=== PATIENT | female | born 1950 | race Caucasian/White ===

== ENCOUNTER 2017-08-14 13:21 | Emergency (ER) | payer OTHER ==
[~2017-08-14] VITALS: Ht 157.5 cm; Wt 77.2 kg
[~2017-08-14 13:21] MED LIST: ADVIN25050 INH; ALBUAER19 INH; BNC20 PO; CLX20 PO; DTRSR4 PO; GABA1CAP5 PO; HYDC25 PO; HYDR-600 PO; SNG10 PO; TIZA2CAP PO; TIZA4CAP PO; TRAM-10 PO; ZNTT/150 PO; [UNRECOGNIZED DRUG - OTHER] PO
[2017-08-14 13:23] VITALS: TEMP 36.6; Ht 157.5 cm; Wt 77.2 kg
[2017-08-14] MEDS ORDERED: OXYCODONE/ACETAMINOPHEN 10/325MG TAB PO STA (13:58)
[2017-08-14] MEDS ORDERED: CLC100X PO (14:04)
[2017-08-14] MEDS ORDERED: TOLT4CAP PO (14:04)
[2017-08-14] MEDS ORDERED: VNTHFA/IN INH (14:04)
[2017-08-14] MEDS ORDERED: CARV6.252 PO (14:04)
[2017-08-14] MEDS ORDERED: ZNTT/150 PO (14:04)
[2017-08-14] MEDS ORDERED: MONT1TAB3 PO (14:04)
[2017-08-14] MEDS ORDERED: TIZA4CAP PO (14:04)
[2017-08-14] MEDS ORDERED: NXM/40 PO (14:04)
[2017-08-14] MEDS ORDERED: HYDR-4079 PO (14:04)
[2017-08-14] MEDS ORDERED: SIMV40TA2 PO (14:04)
[2017-08-14] MEDS ORDERED: GABA-112 PO (14:04)
[2017-08-14] MEDS ORDERED: HYDR25TA5 PO (14:04)
[2017-08-14] MEDS ORDERED: CETI10TA84 PO (14:04)
[2017-08-14] MEDS ORDERED: ADVIN50/60 INH (14:04)
[2017-08-14] MEDS ORDERED: DOCU-94 PO (14:04)
[2017-08-14] MEDS ORDERED: BNC40 PO (14:04)
[2017-08-14] MEDS ORDERED: CITA20TA9 PO (14:04)
--- NOTE | 2017-08-14 14:12 | EMERGENCY ROOM VISIT NOTE ---
History First contact with patient: 13:30 Chief Complaint: CHEST PAIN Stated Complaint: FELL AND HIT CHEST, CHEST PAIN Nursing Triage Summary: Pt states she fell last , had dull pain in her chest from the fall. Fell from step off of a camper. Last evening with sharp, center of chest, unable to take deep breaths. History of Present Illness The patient is a 66 year old female who presents to the Emergency Room with complaints of chest pain. The patient states that last week she is going up stairs and tripped forward, directly onto her sternum. She states that she did fine immediately after the fall, she denies hitting her head or losing consciousness. She denies any other injuries. She denies chest pain at that time but progressively over the past week the chest pain has been getting progressively worse at the site where she hit the ground. She describes a stabbing pain in the sternum that radiates to the back. The pain occurs with deep breathing, and with any movement of the chest. When she is at rest the pain is a 2/10 when she is moving or taking a deep breath the pain goes up to a 9/10. The patient states that after the fall she did remain mobile and was not bound up in bed. She denies a history of PE but states that she had a DVT in her 20s that was attributed to OCP use. The patient denies any history of coronary disease. Prior to the fall she denies any exertional chest pain, shortness of breath, palpitations, or syncope. The patient does have history of COPD but denies any increasing wheezing, cough , or shortness of breath. The patient does state having a few falls at home over the past several months. She states that over this time she gets general feeling that both her feet dragging. She denies any tremors, difficult initiating movements, or muscle stiffness. She has not had any sensory changes. She has not seen a neurologist was never gotten physical therapy. Review of Systems A 10 point review of systems was negative unless stated above. Past Medical/Surgical History COPD HTN HLD Hx of DVT in 20s Chronic low back and neck pain Overactive Bladder GERD CKD Surgical History Hernia Repair Bilateral knee replacement Right shoulder replacement Social History Smoking Status: Never Smoker Smokeless Tobacco Use: No Alcohol Use: none Drug Use: none Marital Status: Housing Status: lives with family Occupation Status: retired (surgical nurse) Current/Historical Medications Scheduled Carvedilol (Coreg), 6.25 MG PO BID Cetirizine (Zyrtec), 10 MG PO HS Citalopram Hydrobromide (Celexa), 20 MG PO DAILY Docusate Sodium (Docusate Sodium), 50 MG PO DAILY Esomeprazole Magnesium (Nexium), 40 MG PO DAILY Fluticasone Prop/Salmeterol (Advair Diskus 500/50 60 Dose), 1 PUFF INH BID Gabapentin (Neurontin), 500 MG PO QID Hydrochlorothiazide (Hydrochlorothiazide), 25 MG PO DAILY Montelukast Sodium (Singulair), 10 MG PO DAILY Olmesartan Medoxomil (Benicar), 40 MG PO DAILY Ranitidine (Zantac), 150 MG PO DAILY Simvastatin (Zocor), 40 MG PO DAILY Tizanidine (Zanaflex), 4 MG PO HS Tolterodine Tartrate (Detrol La), 4 MG PO DAILY Scheduled PRN Albuterol Hfa (Ventolin Hfa), 2-4 PUFFS INH Q6H PRN for SOB/Wheezing Hydrocodone/Acetaminophen 10MG/325MG ([place] 10MG/325MG), 1-2 TABS PO Q4H PRN for Pain Oxycodone Ir (Roxicodone Ir), 1-2 TAB PO Q4H PRN for Pain Allergies As noted above Physical Exam Vital Signs Date Time Temp Pulse Resp B/P (MAP) Pulse Ox O2 Delivery O2 Flow Rate FiO2 08/14/17 16:58 72 17 143/92 96 Room Air 08/14/17 15:19 72 15 144/79 94 Room Air 08/14/17 13:48 Room Air 08/14/17 13:23 36.6 64 20 185/92 97 Room Air Physical Exam Constitutional: Vital signs as above were reviewed. Eyes: Pupils equal, round, and reactive to light. Extraocular muscles are intact. No proptosis. No photophobia. ENT: Mucous membranes are moist. Oropharynx is clear. No sinus tenderness. TMs are clear bilaterally. Cardiovascular: Heart with a regular rate and rhythm. No pedal edema appreciated. Respiratory: Lungs clear to auscultation bilaterally. No wheezes, rales, or rhonchi appreciated. No accessory muscle use. No retractions. No increased work of breathing. GI: Abdomen soft, nontender, nondistended. Normal active bowel sounds. No abdominal hernias appreciated. No rebound. No guarding. : No CVA tenderness appreciated. Musculoskeletal: No midline cervical or vertebral tenderness. No gross deformities. No bony tenderness. No calf swelling or tenderness. No deformity or ecchymoses noted on the chest wall Severe pain to palpation with lower sternum palpation; no tenderness with axillary or posterior chest palpation No flail chest Integumentary: Warm, dry, no rashes appreciated. Neurological: Patient awake, alert, and oriented x 3. Motor 5 out of 5 strength bilateral upper and lower extremities. Lymph: No cervical lymphadenopathy appreciated. Medical Decision & Procedures Laboratory Results 08/14/17 14:10 08/14/17 14:10 Test 08/14/17 14:10 08/14/17 14:18 Red Blood Count 4.65 M/uL (4.2-5.4) Mean Corpuscular Volume 91.4 fL (80-100) Mean Corpuscular Hemoglobin 29.9 pg (25-34) Mean Corpuscular Hemoglobin Concent 32.7 g/dl (32-36) RDW Standard Deviation 46.4 fL (36.4-46.3) RDW Coefficient of Variation 14.0 % (11.5-14.5) Mean Platelet Volume 11.4 fL (7.4-10.4) Anion Gap 6.0 mmol/L (3-11) Est Creatinine Clear Calc Drug Dose 60.5 ml/min Estimated GFR () 79.4 Estimated GFR (Non- 68.5 BUN/Creatinine Ratio 13.2 (10-20) Calcium Level 8.8 mg/dl (8.5-10.1) Troponin I < 0.015 ng/ml (0-0.045) Bedside D-Dimer > 450 ng/mlFEU (0-450) Medications Administered Medications (Trade) Dose Ordered Sig/Mark Route Start Time Stop Time Status Last Admin Dose Admin Oxycodone/ Acetaminophen (Percocet 10-325MG Tab) 1 tab NOW STAT PO 08/14/17 13:58 08/14/17 14:01 DC 08/14/17 14:15 1 TAB Oxycodone HCl (Roxicodone Immediate Rel Tab) 5 mg NOW STAT PO 08/14/17 16:43 08/14/17 16:44 DC 08/14/17 16:58 5 MG ED Course 13:35 - The patient was seen and evaluated by Dr. Nasir Shen MD [facility] 13:50 - Discussed case with Dr. Ernie Anand, ER attending physician Labs ordered CBC, BMP, EKG, troponin, D-dimer Oxycodone 10/325 mg given 14:45 - D-dimer noted to be positive 15:00 - CT PE ordered 15:05 - Re-assessed patient; she is feeling much better after getting oxycodone Discussed +D-dimer and given history of DVT, in the setting of pleuritic pain , we recommend ruling out DVT with CT scan; patient agreeable 13:55 - CT reviewed and negative for PE Discussed findings with patient 16:30 - Discussed with Dr. Anand who is in agreement to discharge with pain control Discharge completed 16:45 - Patient reports some pain and requesting medication. I notified that Oxycodone sent to pharmacy Additional 5 mg Oxycodone given in the ER and she was discharged in stable condition Medical Decision The patient presents with sternal pain after a fall. The differential includes, Sternal Fracture, Rib Fracture, ACS, Pulmonary Emboli , Pneumothorax, Pleural effusion, Atelectasis. The initial chest and rib x-rays did suggest a possible lower sternal fracture and possible right ninth rib fracture. The patient does note history of DVT many decades ago. Though she has reproducible chest pain but in the setting of pleuritic pain that is sharp , we felt appropriate to do screening with D-dimer. The d-dimer was in fact positive. The positive D-dimer was followed up with a CT scan of the chest. CT was fortunately negative for a pulmonary embolism. The CT did confirm the presence of a small fracture at the base of the sternum. CT also showed right ninth rib fracture with mild anterior displacement. CT was negative for pulmonary embolism in the absence of calf pain or leg edema, the recent chest trauma likely explains the elevation and no further workup is required at this time. The patient has not ACS/CAD history but in the setting of chest pain with risk factors we did check a troponin. More importantly, it was important to rule- out evidence for cardiac contusion. Troponin was negative, and there were no acute EKG changes, making this an unlikely cause. Imaging studies done in the emergency room also ruled out other etiologies above including pneumothorax, traumatic effusion or atelectasis. The patient did report that she's been having some increasing ambulatory difficulties and has had a couple of falls at home. In this setting felt to be appropriate to give her referral will defer neurology in the outpatient setting as well as resources for outpatient physical therapy. However at this time, we do feel the patient was safe to go home as she has her living with her who can provide additional support. The patient does take significant amounts of [place] at home for long-standing back pain and a history of multiple back surgeries. We did check the PDMP, which did show that she does get regular prescriptions from her PCP on scheduled one for long intervals. Though, the doses are high there is no suspicious behavior or evidence of diversion. As such we felt that providing a short course of oxycodone for breakthrough pain would be appropriate at this time particularly given her good response to oral oxycodone in the emergency room. At the time of discharge the patient the patient was in stable condition. [place] Drug Monitoring Program Search Results: patient reviewed within database, no issues identified Drug Monitoring Findings: She gets scheduled [place] prescriptions monthly form a single provider monthly. There is no evidence of suspicious behavior or diversion. Head Trauma GCS Score: 15 Medication Reconcilliation Current Medication List: was personally reviewed by me Blood Pressure Screening Patient's blood pressure: Normal blood pressure Blood pressure disposition: Elevated BP felt to be situational (improved by time of discharge) Impression Primary Impression: Sternal fracture Additional Impression: Closed rib fracture Ruled Out: Pulmonary embolism Departure Information Dispostion Home / Self-Care Condition GOOD Prescriptions Oxycodone Ir (Roxicodone Ir) 5 Mg Tab 1-2 TAB PO Q4H Y for Pain, #14 TAB Prov: Ernie Anand MD 08/14/17 Referrals Josep Florez D.O. (PCP) Forms Call Back Authorization, HOME CARE DOCUMENTATION FORM, IMPORTANT VISIT INFORMATION Patient Instructions [facility] Additional Instructions You came to the emergency room because of severe chest pain after a fall. You have a fracture at the bottom of her sternum, and a fracture in your ninth rib. Fortunately, your pain is not related to a clot in the lung and you are not having a heart attack. At this time nothing needs to be done for the fractures. It will take time for them to heal and in the meantime he needs to keep the pain under control. Continue taking your [place], as prescribed by her family doctor. You may need to take it on a more scheduled basis over the next several days. In addition, we will prescribe you with a short prescription for oxycodone for you to take for breakthrough pain. This was sent directly to your pharmacy. In addition, you noted to us that you have been having a general sense of weakness in the feet. As such, we have made a referral for you to see a neurologist and give you a phone number to contact a physical therapist wants to go home. If your symptoms fail to improve, acutely worsen, please seek medical attention immediately by either calling your primary care provider or going to your nearest emergency department. Otherwise, please see your primary care provider within 1 week to ensure that your symptoms continue to improve. It was a pleasure to be involved in your care and we wish you all the best. Problem Qualifiers
[2017-08-14 14:25] LABS: HEMATOCRIT 42.5 % (37-47); MEAN CELL VOLUME 91.4 fL (80-100); MEAN CORPUSCULAR HEMOGLOBIN 29.9 pg (25-34); MEAN CORPUSCULAR HGB CONC 32.7 g/dl (32-36); MEAN PLATELET VOLUME 11.4 fL (7.4-10.4); PLATELET COUNT 238 K/uL (130-400); RED BLOOD COUNT 4.65 M/uL (4.2-5.4)
--- NOTE | 2017-08-14 14:50 | DIAGNOSTIC IMAGING REPORT ---
CHEST 2 VIEWS ROUTINE CLINICAL HISTORY: fall 1 week ago; severe sternal pain; rule out rib and sternal fracture COMPARISON STUDY: No previous studies for comparison. FINDINGS: The cardiac and mediastinal contours are normal. There is no evidence of focal pulmonary consolidation. There is no evidence of failure. No pleural effusions are visualized.[ No pneumothorax is visualized. There are minor basilar atelectatic changes. There are postsurgical changes present within the cervical spine. There is a minimal age-indeterminate deformity of the anterior cortex of the lower sternum. IMPRESSION: 1. Minimal age-indeterminate deformity of the anterior cortex of the lower sternum 2. No active disease in the chest. Electronically signed by: Jose E Gerber M.D. 08/14/2017 2:49 PM Dictated Date/Time: 08/14/2017 2:47 PM
[2017-08-14 14:52] LABS: BLOOD UREA NITROGEN 12 mg/dl (7-18); BUN/CREATININE RATIO 13.2 (10-20); CALCIUM 8.8 mg/dl (8.5-10.1); CARBON DIOXIDE 27 mmol/L (21-32); CHLORIDE 106 mmol/L (98-107); CREATININE 0.88 mg/dl (0.60-1.20); GLUCOSE 79 mg/dl (70-99); POTASSIUM 4.4 mmol/L (3.5-5.1); SODIUM 139 mmol/L (136-145)
--- NOTE | 2017-08-14 14:54 | DIAGNOSTIC IMAGING REPORT ---
RIBS BILATERAL MIN 3 VIEWS CLINICAL HISTORY: Fall one week ago. Sternal and rib pain. COMPARISON STUDY: Chest CT June 06, 2006. FINDINGS: The chest radiograph will be reported separately. No pneumothorax or pleural effusion is present. There is a possible minimally displaced acute fracture the anterior right ninth rib. No additional rib fractures are identified on this exam. Anterior cervical spine fusion is noted as well as postoperative findings consistent with previous abdominal hernia repair. IMPRESSION: 1. Possible acute minimally displaced anterior right ninth rib fracture. 2. No pneumothorax. Electronically signed by: Sharad Hickey M.D. 08/14/2017 2:53 PM Dictated Date/Time: 08/14/2017 2:47 PM
[2017-08-14] MEDS ORDERED: OPTIRAY 320 IV PRN (15:15)
--- NOTE | 2017-08-14 15:48 | DIAGNOSTIC IMAGING REPORT ---
CT ANGIOGRAPHY OF THE CHEST, PULMONARY EMBOLUS PROTOCOL CLINICAL HISTORY: Fall. Pleuritic chest pain. History of deep venous thrombus. COMPARISON STUDY: Chest CT June 06, 2006 and rib and chest radiographs performed earlier today. TECHNIQUE: Following IV administration of 94 mL of Optiray-320, helical axial images of the chest were obtained utilizing the pulmonary embolus protocol. Maximal intensity projections and sagittal and coronal reformats were viewed on an independent 3D workstation. IV contrast was administered without complication. A dose lowering technique was utilized adhering to the principles of ALARA. CT DOSE: 362.39 mGy.cm FINDINGS: No pulmonary emboli are identified. There is no evidence of thoracic aortic dissection. The heart is mildly enlarged. There is no pericardial effusion. No enlarged thoracic lymph nodes are present. No pneumothorax or pleural effusion is present. Groundglass opacities suggest atelectasis. There is no consolidation to suggest pneumonia. A few small right lung nodules are unchanged since exam of June 06, 2006. These are benign given stability. A mild superior endplate T10 compression fracture is likely old. There is an acute minimally displaced sternal fracture with minimal adjacent infiltration. There is an age indeterminate nondisplaced anterior left fifth rib fracture. This is likely acute. Upper abdomen is unremarkable. IMPRESSION: 1. No pulmonary emboli identified. 2. Acute minimally displaced inferior sternal fracture. 3. Age-indeterminate, but likely acute, nondisplaced anterior left fifth rib fracture. Electronically signed by: Sharad Hickey M.D. 08/14/2017 3:47 PM Dictated Date/Time: 08/14/2017 3:33 PM
[2017-08-14] MEDS ORDERED: OXYC-57 PO (16:27)
[2017-08-14] MEDS ORDERED: OXYC1TAB3 PO (16:28)
[2017-08-14] MEDS ORDERED: OXYCODONE HCL IR 5 MG TAB (IMMEDIATE RELEASE) PO STA (16:43)
[2017-08-14 16:58] VITALS: BP 143/92; PULSE 72; O2SAT 96
--- NOTE | 2017-08-14 17:08 | EMERGENCY ROOM VISIT NOTE ---
History First contact with patient: 13:30 Chief Complaint: CHEST PAIN Stated Complaint: FELL AND HIT CHEST, CHEST PAIN Nursing Triage Summary: Pt states she fell last , had dull pain in her chest from the fall. Fell from step off of a camper. Last evening with sharp, center of chest, unable to take deep breaths. History of Present Illness The patient is a 66 year old female who presents to the Emergency Room with complaints of anterior chest pain that occurred after a fall last week. The patient states that she fell off a step camper. She was doing a lot of cleaning and exercising of her chest wall and the pain became worse. She notes is difficult to take a deep breath because the pain increases. No relieving factors. She does chronic neck pain and back pain. She notes numerous falls over the last several months. She states that she may be having issues with dragging her right foot that is not new. She sees pain management and [facility] due to her neck and back pain. Pt denies LOC, headache, fevers, chills, diaphoresis, visual changes, tearing pain radiating to the back, personal history or family history of aneurysm or pulmonary embolism, uncontrolled hypertension, breathing difficulties, leg swelling, coagulation abnormalities, prolonged travel, recent surgery or immobilization, nausea, vomiting, abdominal pain, melena, hematochezia, urinary symptoms, numbness, weakness, lymphadenopathy, rash, or other complaints. Review of Systems See HPI for pertinent positives and negatives. A total of ten systems were reviewed and were otherwise negative. Social History Smoking Status: Never Smoker Smokeless Tobacco Use: No Alcohol Use: none Drug Use: none Marital Status: Housing Status: lives with family Occupation Status: retired (surgical nurse) Current/Historical Medications Scheduled Carvedilol (Coreg), 6.25 MG PO BID Cetirizine (Zyrtec), 10 MG PO HS Citalopram Hydrobromide (Celexa), 20 MG PO DAILY Docusate Sodium (Docusate Sodium), 50 MG PO DAILY Esomeprazole Magnesium (Nexium), 40 MG PO DAILY Fluticasone Prop/Salmeterol (Advair Diskus 500/50 60 Dose), 1 PUFF INH BID Gabapentin (Neurontin), 500 MG PO QID Hydrochlorothiazide (Hydrochlorothiazide), 25 MG PO DAILY Montelukast Sodium (Singulair), 10 MG PO DAILY Olmesartan Medoxomil (Benicar), 40 MG PO DAILY Ranitidine (Zantac), 150 MG PO DAILY Simvastatin (Zocor), 40 MG PO DAILY Tizanidine (Zanaflex), 4 MG PO HS Tolterodine Tartrate (Detrol La), 4 MG PO DAILY Scheduled PRN Albuterol Hfa (Ventolin Hfa), 2-4 PUFFS INH Q6H PRN for SOB/Wheezing Hydrocodone/Acetaminophen 10MG/325MG ([place] 10MG/325MG), 1-2 TABS PO Q4H PRN for Pain Oxycodone Ir (Roxicodone Ir), 1-2 TAB PO Q4H PRN for Pain Physical Exam Vital Signs Date Time Temp Pulse Resp B/P (MAP) Pulse Ox O2 Delivery O2 Flow Rate FiO2 08/14/17 15:19 72 15 144/79 94 Room Air 08/14/17 13:48 Room Air 08/14/17 13:23 36.6 64 20 185/92 97 Room Air Physical Exam GENERAL: Awake, alert, uncomfortable appearing, in no distress HENT: Normocephalic, atraumatic. Oropharynx unremarkable. EYES: Normal conjunctiva. Sclera non-icteric. NECK: Supple. No nuchal rigidity. FROM. No JVD. RESPIRATORY: Clear to auscultation. CARDIAC: Regular rate, normal rhythm. Extremities warm and well perfused. Pulses equal. ABDOMEN: Soft, non-distended. No tenderness to palpation. No rebound or guarding. No masses. RECTAL: Deferred. MUSCULOSKELETAL: Chest examination reveals significant sternal and anterior rib tenderness. The back is symmetrical on inspection without obvious abnormality. There is no CVA tenderness to palpation. No joint edema. LOWER EXTREMITIES: Calves are equal size bilaterally and non-tender. No edema. No discoloration. NEURO: Normal sensorium. No sensory or motor deficits noted. EHL function intact. No drift. No saddle anesthesia. SKIN: No rash or jaundice noted. Medical Decision & Procedures ER Provider Diagnostic Interpretation: Imaging studies: Chest x-ray. Findings: A chest x-ray was performed and revealed no pneumothorax, effusion, infiltrate, pulmonary edema, free air under the diaphragm, or wide mediastinum. Impression: No acute disease. RIBS BILATERAL MIN 3 VIEWS CLINICAL HISTORY: Fall one week ago. Sternal and rib pain. COMPARISON STUDY: Chest CT June 06, 2006. FINDINGS: The chest radiograph will be reported separately. No pneumothorax or pleural effusion is present. There is a possible minimally displaced acute fracture the anterior right ninth rib. No additional rib fractures are identified on this exam. Anterior cervical spine fusion is noted as well as postoperative findings consistent with previous abdominal hernia repair. IMPRESSION: 1. Possible acute minimally displaced anterior right ninth rib fracture. 2. No pneumothorax. Electronically signed by: Sharad Hickey M.D. 08/14/2017 2:53 PM Dictated Date/Time: 08/14/2017 2:47 PM The status of this report is Signed. Draft = Not yet reviewed or approved by Radiologist. Signed = Reviewed and approved by Radiologist CT ANGIOGRAPHY OF THE CHEST, PULMONARY EMBOLUS PROTOCOL CLINICAL HISTORY: Fall. Pleuritic chest pain. History of deep venous thrombus. COMPARISON STUDY: Chest CT June 06, 2006 and rib and chest radiographs performed earlier today. TECHNIQUE: Following IV administration of 94 mL of Optiray-320, helical axial images of the chest were obtained utilizing the pulmonary embolus protocol. Maximal intensity projections and sagittal and coronal reformats were viewed on an independent 3D workstation. IV contrast was administered without complication. A dose lowering technique was utilized adhering to the principles of ALARA. CT DOSE: 362.39 mGy.cm FINDINGS: No pulmonary emboli are identified. There is no evidence of thoracic aortic dissection. The heart is mildly enlarged. There is no pericardial effusion. No enlarged thoracic lymph nodes are present. No pneumothorax or pleural effusion is present. Groundglass opacities suggest atelectasis. There is no consolidation to suggest pneumonia. A few small right lung nodules are unchanged since exam of June 06, 2006. These are benign given stability. A mild superior endplate T10 compression fracture is likely old. There is an acute minimally displaced sternal fracture with minimal adjacent infiltration. There is an age indeterminate nondisplaced anterior left fifth rib fracture. This is likely acute. Upper abdomen is unremarkable. IMPRESSION: 1. No pulmonary emboli identified. 2. Acute minimally displaced inferior sternal fracture. 3. Age-indeterminate, but likely acute, nondisplaced anterior left fifth rib fracture. Laboratory Results 08/14/17 14:10 08/14/17 14:10 Test 08/14/17 14:10 08/14/17 14:18 Red Blood Count 4.65 M/uL (4.2-5.4) Mean Corpuscular Volume 91.4 fL (80-100) Mean Corpuscular Hemoglobin 29.9 pg (25-34) Mean Corpuscular Hemoglobin Concent 32.7 g/dl (32-36) RDW Standard Deviation 46.4 fL (36.4-46.3) RDW Coefficient of Variation 14.0 % (11.5-14.5) Mean Platelet Volume 11.4 fL (7.4-10.4) Anion Gap 6.0 mmol/L (3-11) Est Creatinine Clear Calc Drug Dose 60.5 ml/min Estimated GFR () 79.4 Estimated GFR (Non- 68.5 BUN/Creatinine Ratio 13.2 (10-20) Calcium Level 8.8 mg/dl (8.5-10.1) Troponin I < 0.015 ng/ml (0-0.045) Bedside D-Dimer > 450 ng/mlFEU (0-450) Medications Administered Medications (Trade) Dose Ordered Sig/Mark Route Start Time Stop Time Status Last Admin Dose Admin Oxycodone/ Acetaminophen (Percocet 10-325MG Tab) 1 tab NOW STAT PO 08/14/17 13:58 08/14/17 14:01 DC 08/14/17 14:15 1 TAB Medical Decision Triage Nursing notes reviewed. The patient's presentation and history were concerning for chest pain. Etiologies such as contusion, fracture, pneumothorax, musculoskeletal, cardiac ischemia, aortic dissection, pulmonary embolism, pneumonia, infections, gastrointestinal, as well as others were entertained. The patient was evaluated. She was uncomfortable. She was treated as above. Imaging was ordered. Her blood work was unremarkable except her d-dimer was elevated. The patient underwent CT imaging. This shows the findings as above. A single set of cardiac markers performed given the patient's pain duration. These were negative. ECG did not show any acute findings. She had a normal sinus rhythm at 66 bpm. Low voltage QRS. There is no evidence of acute ischemic change or ectopy. Septal Q waves noted. The patient does take pain medication for her chronic neck and back issues. She will be given a small amount of oxycodone for breakthrough pain. She will need a follow-up closely in the office. The patient also notes issues with falling and walking that have been going on for many months. This could be coming from her significant back and neck issues however I did discuss referral to neurology and the patient and were in agreement. If she worsens she will come back here. The patient was seen and examined with Dr. Nasir Shen, resident physician. We discussed the case and treatments ordered, reviewed the results, and determine the disposition. Please refer to the resident's note for additional details. I have been directly involved with the management and disposition as well as independently evaluated the patient as documented in this note. By the evaluation outlined above other emergent etiologies such as those listed in the differential, as well as others, were deemed relatively unlikely. The patient was educated about the findings as listed above. All questions were answered and the patient was pleased with the treatment. Return instructions were outlined and the patient was discharged in stable condition. The patient was referred to her PCP and neurology for follow-up for a recheck of the current condition. Impression Primary Impression: Sternal fracture Additional Impression: Closed rib fracture Ruled Out: Pulmonary embolism Departure Information Dispostion Home / Self-Care Condition GOOD Prescriptions Oxycodone Ir (Roxicodone Ir) 5 Mg Tab 1-2 TAB PO Q4H Y for Pain, #14 TAB Prov: Ernie Anand MD 08/14/17 Referrals Josep Florez D.O. (PCP) Forms Call Back Authorization, HOME CARE DOCUMENTATION FORM, IMPORTANT VISIT INFORMATION Patient Instructions [facility] Additional Instructions You came to the emergency room because of severe chest pain after a fall. You have a fracture at the bottom of her sternum, and a fracture in your ninth rib. Fortunately, your pain is not related to a clot in the lung and you are not having a heart attack. At this time nothing needs to be done for the fractures. It will take time for them to heal and in the meantime he needs to keep the pain under control. Continue taking your [place], as prescribed by her family doctor. You may need to take it on a more scheduled basis over the next several days. In addition, we will prescribe you with a short prescription for oxycodone for you to take for breakthrough pain. This was sent directly to your pharmacy. In addition, you noted to us that you have been having a general sense of weakness in the feet. As such, we have made a referral for you to see a neurologist and give you a phone number to contact a physical therapist wants to go home. If your symptoms fail to improve, acutely worsen, please seek medical attention immediately by either calling your primary care provider or going to your nearest emergency department. Otherwise, please see your primary care provider within 1 week to ensure that your symptoms continue to improve. It was a pleasure to be involved in your care and we wish you all the best. Problem Qualifiers
== END 2017-08-14 17:05 | disposition home or self-care (01) ==
LOC: C.EDB 13:23 → C.EDC 17:05
DX: S22.20XA Unspecified fracture of sternum, initial encounter for closed fracture (principal); S22.31XA Fracture of one rib, right side, initial encounter for closed fracture; W10.9XXA Fall (on) (from) unspecified stairs and steps, initial encounter; J44.9 Chronic obstructive pulmonary disease, unspecified; E78.5 Hyperlipidemia, unspecified; G89.29 Other chronic pain; M54.5 Low back pain; M54.2 Cervicalgia; K21.9 Gastro-esophageal reflux disease without esophagitis; N18.9 Chronic kidney disease, unspecified; I12.9 Hypertensive chronic kidney disease with stage 1 through stage 4 chronic kidney disease, or unspecified chronic kidney disease; Z86.718 Personal history of other venous thrombosis and embolism; N32.81 Overactive bladder; Z79.899 Other long term (current) drug therapy

== ENCOUNTER → 2017-09-19 | Outpatient (CLI) | payer OTHER ==
[~2017-09-19] MED LIST changes: -ADVIN25050 INH; +ADVIN50/60 INH; -ALBUAER19 INH; -BNC20 PO; +BNC40 PO; +CARV6.252 PO; +CETI10TA84 PO; +CITA20TA9 PO; +CLC100X PO; -CLX20 PO; -DTRSR4 PO; +GABA-112 PO; -GABA1CAP5 PO; +GADAVIST IV PRN; -HYDC25 PO; +HYDR-4079 PO; -HYDR-600 PO; +HYDR25TA5 PO; +MONT1TAB3 PO; +NXM/40 PO; +OXYC1TAB3 PO; +SIMV40TA2 PO; -SNG10 PO; -TIZA2CAP PO; +TOLT4CAP PO; -TRAM-10 PO; +VNTHFA/IN INH; -[UNRECOGNIZED DRUG - OTHER] PO
--- NOTE | 2017-09-19 11:35 | DIAGNOSTIC IMAGING REPORT ---
BRAIN COMBO CLINICAL HISTORY: R29.6,R26.89 mental status change. Dizziness COMPARISON STUDY: No previous studies for comparison. TECHNIQUE: Utilizing a 1.5 Yahaira magnet and dedicated coil, multiplanar, multiecho imaging of the brain was performed pre and postcontrast administration. IV administration of 7.5 mL of Gadavist contrast was uneventful. FINDINGS: Diffusion-weighted images show no evidence for an acute ischemic insult. Signal characteristics of the cerebellar as well as cerebral hemispheres are in general unremarkable. Small focus of increased signal within the right fahad showing no evidence for abnormal postcontrast enhancement. No evidence for abnormal increase in signal on the diffusion-weighted images. Ventricular system is midline. Internal artery canals are symmetric. IMPRESSION: 1. Several small foci of increased signal within the periventricular and deep white matter regions, as well as a single focus of increased signal within the right central fahad. 2. These findings are consistent with chronic small vessel change. 3. No evidence for an acute ischemic insult. 4. No evidence for abnormal postcontrast enhancement. The above report was generated using voice recognition software. It may contain grammatical, syntax or spelling errors. Electronically signed by: Evan Shafer M.D. 09/19/2017 11:33 AM Dictated Date/Time: 09/19/2017 11:29 AM
== END | disposition home or self-care (01) ==
LOC: C.MRI 09:48
PROVIDERS: ATTEND Physician Assistant
DX: R90.89 Other abnormal findings on diagnostic imaging of central nervous system (principal); R26.89 Other abnormalities of gait and mobility; R29.6 Repeated falls

== ENCOUNTER → 2017-10-10 | Outpatient (CLI) | payer OTHER ==
--- NOTE | 2017-10-10 18:37 | DIAGNOSTIC IMAGING REPORT ---
LUMBAR SPINE COMBINATION CLINICAL HISTORY: 66 years-old Female with R29.6 Falls [id number] Lumbosacral radiculopathy at S1. Acute low back pain with radicular symptoms extending into the right lower extremity. COMPARISON: Lumbar spine MR 09/30/2006. TECHNIQUE: Multiplanar, multi sequence MRI of the lumbar spine was performed without intravenous contrast. FINDINGS: The large [id number] network engineer localizer images demonstrate no gross abnormality. Uterus is not seen and may be surgically absent. Mild levoscoliosis of the lumbar spine. 11 mm T2 hyperintense structure involving the inferior pole left kidney suggests renal cyst without associated enhancement. No abdominal aortic aneurysm. 11 mm perineural root sleeve cyst again noted on the left at S2. There is a moderate to large facet effusion on the left at L4-L5 as seen on image 10 series 5 with mild surrounding edema and avid enhancement as seen on image 19 series 9. On the precontrast T1 images the cortex appears preserved. Severe marginal spurring of the facets are noted at this level, left greater than right. No additional abnormal enhancement. Conus medullaris terminates at T12-L1. T12-L1: No central canal or neural foraminal stenosis. L1-L2: No central canal or neural foraminal stenosis. L2-L3: Mild intervertebral disc space narrowing with posterior spondylitic spurring and very small circumferential annular disc bulge favoring the right far lateral recess as seen on image 9 series 6. No central canal or left foraminal stenosis. There is mild inferior right foraminal narrowing which appears progressed from comparison. L3-L4: Moderate intervertebral disc space narrowing with 2 mm anterolisthesis. Spondylitic spurring with circumferential annular disc bulge favoring the right far lateral recess may abut the traversing right L3 nerve root. There is mild right foraminal narrowing and mild central canal narrowing. Left foramen is patent. Moderate facet arthrosis with ligamentum flavum thickening. Findings have progressed from comparison. L4-L5: Moderate intervertebral disc space narrowing with 2 mm anterolisthesis. Circumferential annular disc bulge with severe facet arthropathy as described above. Ligamentum flavum thickening. Flattening of the ventral thecal sac without significant central canal narrowing. Right foramen is patent. Mild left foraminal narrowing. Findings have progressed from comparison. L5-S1: No significant intervertebral disc space narrowing. Minimal posterior spondylitic spurring with moderate facet arthrosis. Mild left foraminal narrowing. The right foramen and central canal are patent. IMPRESSION: 1. Mild levoscoliosis with progression of multilevel discogenic degenerative changes and facet arthrosis as above which have worsened from comparison study 09/30/2006. Multilevel annular disc bulging favors the right far lateral distribution secondary to the aforementioned levoscoliosis. 2. Severe facet arthrosis at L4-L5 with moderate to large facet effusion on the left demonstrating associated avid enhancement, likely reactive secondary to the degenerative changes. 3. At L3-L4 there is mild right foraminal and mild central canal narrowing. The far lateral disc bulge appears to abut the traversing right L3 nerve root. This may account for the patient's reported right-sided radicular symptomatology. 4. At L2-L3 there is mild right foraminal narrowing. The above report was generated using voice recognition software. It may contain grammatical, syntax or spelling errors. Electronically signed by: Efrem Dawn M.D. 10/10/2017 6:36 PM Dictated Date/Time: 10/10/2017 6:10 PM
== END | disposition home or self-care (01) ==
LOC: C.MRI 17:26
PROVIDERS: ATTEND Psychiatry & Neurology Neurology
DX: R29.6 Repeated falls (principal); M41.86 Other forms of scoliosis, lumbar region; M51.16 Intervertebral disc disorders with radiculopathy, lumbar region